=== PATIENT | female | born 1985 | race Caucasian/White ===

== ENCOUNTER 2016-04-08 18:39 | Emergency (ER) | payer OTHER ==
--- NOTE | 2016-04-08 19:00 | PDOC ---
Rapid Medical Evaluation Medical Evaluation: Allergies Allergy/AdvReac Type Severity Reaction Status Date / Time No Known Allergies Allergy Verified 04/08/16 18:56 04/08/16 18:57 30 yo F had raspberry for the first time yesterday and now c/o puritic red rash to b/l hands/ inner legs/ back and abd started ~1630hrs today. Denies sob/ cp.
[2016-04-08 19:01] VITALS: BP 144/80; PULSE 60; TEMP 98.3; BMI 32.2
[2016-04-08] MEDS ORDERED: diphenhydrAMINE HCL 25 MG CAPSULE (FP) PO ONE (19:33)
[2016-04-08] MEDS ORDERED: predniSONE 20 MG TABLET (UD) PO ONE (19:33)
--- NOTE | 2016-04-08 19:42 | PDOC ---
History of Present Illness - General Chief Complaint: Allergic Reaction Stated Complaint: RASH/ALLERGIC REACTION Time Seen by Provider: 04/08/16 19:05 History Source: Patient - History of Present Illness Timing/Duration: reports: this afternoon Severity: Yes: severe Location: reports: extremities, torso Past History - Past Medical History Allergies/Adverse Reactions: Allergies Allergy/AdvReac Type Severity Reaction Status Date / Time No Known Allergies Allergy Verified 04/08/16 18:56 Home Medications: Ambulatory Orders Ibuprofen [Motrin] 800 mg PO TID #20 tablet 08/10/14 Norethindrone [Maggie] 0.35 mg PO DAILY 08/10/14 Diphenhydramine HCl [Benadryl -] 25 mg PO Q6H #28 capsule 04/08/16 Prednisone [Deltasone -] 40 mg PO DAILY #8 tablet 04/08/16 Other medical history: none - Reproductive History (#): 1 Para: 0 Cervical CA: No Dysfunctional Uterine Bleeding: No Ectopic : No Endometrial CA: No Polycystic Ovaries: No Therapeutic (s) & number: No Tubal Ligation: No - Immunization History Immunization Up to Date: Yes - Psycho/Social/Smoking Cessation Hx Anxiety: No Suicidal Ideation: No Smoking Status: No Smoking History: Never smoked Have you smoked in the past 12 months: No Number of Cigarettes Smoked Daily: 0 Information on smoking cessation initiated: No Hx Alcohol Use: No Drug/Substance Use Hx: No Substance Use Type: None Review of Systems - Review of Systems HEENTM: No: Throat Swelling, Mouth Swelling Respiratory: No: Shortness of Breath, Stridor, Wheezing Integumentary: Yes: Pruritus, Rash *Physical Exam - Vital Signs Last Vital Signs Temp Pulse Resp BP Pulse Ox 98.3 F 60 18 144/80 100 04/08/16 18:57 04/08/16 18:57 04/08/16 18:57 04/08/16 18:57 04/08/16 18:57 - Physical Exam General Appearance: Yes: Appropriately Dressed, Mild Distress HEENT: positive: Normal ENT Inspection, Normal Voice, Pharynx Normal. negative : Scleral Icterus (R), Scleral Icterus (L), Muffled/Hoarse voice Neck: positive: Supple. negative: Stridor Respiratory/Chest: positive: Lungs Clear, Normal Breath Sounds. negative: Respiratory Distress Cardiovascular: positive: Regular Rate, S1, S2 Integumentary: positive: Dry, Warm, Hives (extensive to trunk and LEs) Neurologic: positive: Fully Oriented, Alert, Normal Mood/Affect Medical Decision Making - Medical Decision Making 04/08/16 19:38 30 yo F, deneis any pmhx and no drug or food allergies, here w/ pruritic rash to trunk and extremities that started >3 hrs ago. States she ate raspberries for the first time yesterday evening and this a.m, otherwise denies any inciting agents. No history of similar rash in the past. Denies any voice changes, sore throat, swollen tongue or respiratory issues. Patient stable and actively scratching affected areas in ED, has extensive rash to trunk and lower extremities. Oropharynx clear and no stridor with clear chest lungs. Dose of Benadryl and prednisone in ED given extensive lesions. Patient to be discharged with same with strict return precautions. Told to refrain from Rupesh in the event that this is the source of her rash. 04/08/16 19:43 *DC/Admit/Observation/Transfer Diagnosis at time of Disposition: Hives - Discharge Dispostion Disposition: HOME Condition at time of disposition: Improved - Prescriptions Prescriptions: Diphenhydramine HCl [Benadryl -] 25 mg PO Q6H #28 capsule Prednisone [Deltasone -] 40 mg PO DAILY #8 tablet - Patient Instructions Printed Discharge Instructions: Hives Additional Instructions: Usted tiene urticaria que generalmente es causada por algo que usted es al rgico a. En hall serjio, podra ser las frambuesas que comi ya que nunca se rosen comido antes y no tienen otras alergias a los alimentos o medicamentos. Srvase brett los medicamentos prescritos y regresar por el empeoramiento de los s ntomas. Abhi un seguimiento con hall PMD para posible remisin a un alergista si vuelven a ocurrir las Print Language: PERSIAN
== END 2016-04-08 20:01 | disposition home or self-care (01) ==
LOC: JERFT 18:39
DX: L50.0 Allergic urticaria (principal); T78.40XA Allergy, unspecified, initial encounter; X58.XXXA Exposure to other specified factors, initial encounter
CPT/HCPCS: 99281-25

== ENCOUNTER 2017-02-05 15:31 | Emergency (ER) | payer OTHER ==
[2017-02-05 15:40] VITALS: BP 138/74; PULSE 69; TEMP 98.2; BMI 29.2
--- NOTE | 2017-02-05 15:40 | PDOC ---
Rapid Medical Evaluation Time Seen by Provider: 02/05/17 15:36 Medical Evaluation: Allergies Allergy/AdvReac Type Severity Reaction Status Date / Time No Known Allergies Allergy Verified 02/05/17 15:36 02/05/17 15:37 I have performed a brief in-person evaluation of this patient. The patient presents with a chief complaint of: Neck pain x 3 days. No trauma Pertinent physical exam findings:+ttp over R sternocleidomastoid I have ordered the following:nothing The patient will proceed to the ED for further evaluation.
[2017-02-05] MEDS ORDERED: KETOROLAC TROMETHAMINE 60 MG/2 ML VIAL IM ONE (16:40)
[2017-02-05] MEDS ORDERED: KETOROLAC TROMETHAMINE 60 MG/2 ML VIAL ONE (16:41)
--- NOTE | 2017-02-05 16:45 | PDOC ---
History of Present Illness - General Chief Complaint: Pain, Acute Stated Complaint: NECK PAIN Time Seen by Provider: 02/05/17 15:36 History Source: Patient Exam Limitations: No Limitations - History of Present Illness Initial Comments: 02/05/17 16:40 Patient states was suffering from a bad cold last week with frequent coughing, body aches and fevers. States had onset of mild neck pain then and is progressively worsened. Uncertain as to cause, denies accident or injury, denies using any medications for treatment Severity: reports: mild, moderate Pain Location: reports: neck Modifying Factors: improves with: None Past History - Travel Traveled outside of the country in the last 30 days: No Close contact w/someone who was outside of country & ill: No - Past Medical History Allergies/Adverse Reactions: Allergies Allergy/AdvReac Type Severity Reaction Status Date / Time No Known Allergies Allergy Verified 02/05/17 15:36 Home Medications: Ambulatory Orders Cyclobenzaprine HCl [Flexeril 10 mg] 10 mg PO BID PRN #14 tablet 02/05/17 Naproxen [Naprosyn -] 500 mg PO BID #20 tablet 02/05/17 CVA: No COPD: No DVT: No - Reproductive History (#): 1 Para: 0 Cervical CA: No Dysfunctional Uterine Bleeding: No Ectopic : No Endometrial CA: No Polycystic Ovaries: No Therapeutic (s) & number: No Tubal Ligation: No - Immunization History Immunization Up to Date: Yes - Suicide/Smoking/Psychosocial Hx Smoking Status: No Smoking History: Never smoked Have you smoked in the past 12 months: No Number of Cigarettes Smoked Daily: 0 Information on smoking cessation initiated: No Hx Alcohol Use: No Drug/Substance Use Hx: No Substance Use Type: None Review of Systems - Review of Systems Able to Perform ROS?: Yes Is the patient limited Montenegrin proficient: Yes Constitutional: Yes: Symptoms Reported, See HPI, Malaise. No: Fever HEENTM: No: Symptoms Reported Respiratory: Yes: Symptoms reported ABD/GI: Yes: Symptoms Reported, See HPI. No: Vomiting All Other Systems: Reviewed and Negative *Physical Exam - Vital Signs Last Vital Signs Temp Pulse Resp BP Pulse Ox 98.2 F 69 17 138/74 100 02/05/17 15:37 02/05/17 15:37 02/05/17 15:37 02/05/17 15:37 02/05/17 15:37 - Physical Exam General Appearance: Yes: Nourished, Appropriately Dressed, Apparent Distress, Mild Distress, Moderate Distress HEENT: positive: JOSS, Normal ENT Inspection, TMs Normal, Pharynx Normal Neck: positive: Supple, Other (no cervical bone tenderness, range of motion is limited secondary to spasm). negative: Tender, Lymphadenopathy (R), Lymphadenopathy (L) Respiratory/Chest: positive: Lungs Clear, Normal Breath Sounds. negative: Chest Tender Gastrointestinal/Abdominal: positive: Soft, Guarding, Rebound. negative: Normal Bowel Sounds Musculoskeletal: positive: Normal Inspection, Muscle Spasm (operable spasm and reproduced tenderness along the paravertebral spinous muscles, worse with trigger point at occiput that reproduces pain to scalp and frontal area and radiating pain down upper trapezius and left shoulder.). negative: CVA Tenderness Extremity: positive: Normal Capillary Refill, Normal Inspection. 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, Fully Oriented, Alert, Normal Mood/ Affect, Normal Response, Motor Strength 5/5 Progress Note - Progress Note Progress Note: Cervical strain, will treat with NSAIDs and cyclobenzaprine *DC/Admit/Observation/Transfer Diagnosis at time of Disposition: Torticollis - Discharge Dispostion Disposition: HOME Condition at time of disposition: Stable Admit: No - Prescriptions Prescriptions: Cyclobenzaprine HCl [Flexeril 10 mg] 10 mg PO BID PRN #14 tablet PRN Reason: spasm Naproxen [Naprosyn -] 500 mg PO BID #20 tablet - Referrals - Patient Instructions Printed Discharge Instructions: DI for Cervical Muscle Strain Additional Instructions: Rest, no heavy lifting or exercise until pain is resolved Hot soaks to neck and low back as often as possible/hot showers or Jacuzzis No massage or therapy until spasm is gone Continue Naprosyn 1 -500 mg tablet every 8 hours for the next 3 days then as needed for pain and swelling Cyclobenzaprine 1-10mg every 8 hours as needed for spasm If not significant improvement within 24 hours with medication and rest regime, followup with private physician for change in medications and /or therapy. - Post Discharge Activity Forms/Work/School Notes: Back to Work
== END 2017-02-05 17:13 | disposition home or self-care (01) ==
LOC: JERFT 15:31
PROC: 3E0233Z Introduction of Anti-inflammatory into Muscle, Percutaneous Approach (ICD-10-PCS; principal; 2017-02-05)
DX: M43.6 Torticollis (principal)
CPT/HCPCS: 99281-25